=== PATIENT | female | born 1955 | race Caucasian/White ===

== ENCOUNTER → 2016-07-25 | Outpatient (CLI) | payer OTHER ==
[~2016-07-25] MED LIST: ALPR-475 PO; CALC-451 PO; CHOL40002 PO; CYAN1TAB29 PO; HYDR-3240 PO; OMEG-156 PO-COUM; POTASSIUM PO
[2016-07-25 09:52] LABS: BLOOD UREA NITROGEN 9 mg/dL (7-18)
[2016-07-25 09:55] LABS: ASPARTATE AMINO TRANSFERASE 18 U/L (15-37)
[2016-07-25 10:31] LABS: HIV 1&2 ANTIBODY SCREEN Nonreactive (Nonreactive); HIV-1 p24 ANTIGEN Nonreactive (Nonreactive)
== END | disposition home or self-care (01) ==
LOC: STAR 08:29
PROVIDERS: ATTEND Orthopaedic Surgery
DX: Z01.818 Encounter for other preprocedural examination (principal); M16.12 Unilateral primary osteoarthritis, left hip; R79.1 Abnormal coagulation profile
CPT/HCPCS: 36415; 80053; 81001; 83036; 85025; 85610; 85730; 86703; 87081; 87899; 93005; G0435

== ENCOUNTER 2016-08-05 08:32 | Inpatient (IN) | payer OTHER ==
[~2016-08-05] VITALS: Ht 160 cm; Wt 56.2 kg
[2016-08-05] MEDS ORDERED: KETOROLAC 60 MG/2 ML ONE (11:14)
[2016-08-05] MEDS ORDERED: TRANEXAMIC ACID 100 MG/ML, 10ML ONE ×4 (11:14)
[2016-08-05] MEDS ORDERED: SODIUM CHLORIDE 0.9% 50 ML ONE (11:14)
[2016-08-05] MEDS ORDERED: ROPIvacaine/PF 0.2%, 20 ML ONE (11:14)
[2016-08-05] MEDS ORDERED: EPINEPHRINE 1 MG/ML, 1ML ONE (11:14)
[2016-08-05 11:24] VITALS: BP 161/91
[2016-08-05] MEDS ORDERED: VANCOMYCIN PER PHARMACY MC STA (11:31)
[2016-08-05] MEDS ORDERED: LACTATED RINGERS 1,000 ML IV SCH (11:51)
[2016-08-05] MEDS ORDERED: VANCOMYCIN 1,100 MG in SODIUM CHLORIDE 0.9% 250 ML IV ONE (12:00)
[2016-08-05] MEDS ORDERED: OxyconTIN ER 10 MG TAB.ER ONE (12:05)
[2016-08-05] MEDS ORDERED: OxyconTIN ER 10 MG TAB.ER PO ONE (12:30)
[2016-08-05] MEDS ORDERED: FENTANYL PF 250 MCG/5ML ONE (13:07)
[2016-08-05] MEDS ORDERED: MIDAZOLAM 1 MG/ML, 2ML ONE (13:07)
[2016-08-05] MEDS ORDERED: LABETALOL 5MG/ML, 20ML IV PRN (14:30)
[2016-08-05] MEDS ORDERED: HYDROmorphone 1 MG/ML, 1ML IV PRN ×2 (14:30→15:00)
[2016-08-05] MEDS ORDERED: OXYcodone 5 MG/5 ML ORAL.SOL UDC PO PRN (14:30)
[2016-08-05] MEDS ORDERED: PROMETHAZINE 25 MG/ML, 1ML IV PRN (14:30)
[2016-08-05] MEDS ORDERED: ONDANSETRON 2MG/ML, 2ML IVPush PRN (14:30)
[2016-08-05] MEDS ORDERED: MEPERIDINE/PF 25MG/0.5ML IVPush PRN (14:30)
[2016-08-05] MEDS ORDERED: FENTANYL PF 100 MCG/2ML IV PRN (14:30)
[2016-08-05] MEDS ORDERED: ACETAMINOPHEN 325 MG TABLET PO PRN (14:30)
[2016-08-05] MEDS ORDERED: hydrALAzine 20 MG/ML, 1ML IV PRN (14:30)
[2016-08-05] MEDS ORDERED: ONDANSETRON 4 MG TABLET PO PRN (15:00)
[2016-08-05] MEDS ORDERED: BISACODYL 10 MG SUPP PR PRN (15:00)
[2016-08-05] MEDS ORDERED: PROMETHAZINE 12.5 MG SUPP PR PRN (15:00)
[2016-08-05] MEDS ORDERED: DIPHENHYDRAMINE 50 MG CAPSULE PO PRN (15:00)
[2016-08-05] MEDS ORDERED: PROMETHAZINE 25 MG/ML, 1ML IM PRN (15:00)
[2016-08-05] MEDS ORDERED: SENNA/DOCUSATE TABLET PO PRN (15:00)
[2016-08-05] MEDS ORDERED: ZOLPIDEM 5MG TABLET PO PRN (15:00)
[2016-08-05] MEDS ORDERED: OXYcodone IR 5MG TABLET PO PRN (15:00)
[2016-08-05] MEDS ORDERED: ACETAMINOPHEN 650 MG/20.3 ML UDC PO PRN (15:00)
[2016-08-05] MEDS ORDERED: ONDANSETRON 2MG/ML, 2ML IV PRN (15:00)
[2016-08-05] MEDS ORDERED: MAGNESIUM HYDROXIDE 8%, 30ML UDC PO PRN (15:00)
[2016-08-05] MEDS ORDERED: SCOPOLAMINE PATCH, 1.5MG PATCH.TD72 TD SCH (15:00)
[2016-08-05] MEDS ORDERED: ALUMINUM/MAG/SIMETHICONE 30 ML UDC PO PRN (15:00)
[2016-08-05] MEDS ORDERED: DIAZEPAM 5 MG TABLET PO PRN (15:00)
[2016-08-05] MEDS ORDERED: PROPOFOL 10 MG/ML, 20ML ONE (15:11)
[2016-08-05] MEDS ORDERED: ONDANSETRON 2MG/ML, 2ML ONE (15:11)
[2016-08-05] MEDS ORDERED: PHENYLEPHRINE 10 MG/ML ONE (15:11)
[2016-08-05] MEDS ORDERED: DEXAMETHASONE 4 MG/ML, 1ML ONE (15:11)
[2016-08-05] MEDS ORDERED: PROPOFOL 10 MG/ML, 50ML ONE (15:11)
[2016-08-05] MEDS ORDERED: CEFAZOLIN 1,000 MG ONE (15:11)
[2016-08-05] MEDS ORDERED: OXYcodone 5 MG/5 ML ORAL.SOL UDC ONE (18:05)
[2016-08-05] MEDS: D5%-0.45% NACL 1,000 ML IV SCH (20:24)
[2016-08-05] MEDS: HYDROcodone/APAP 10/325 MG TABLET PO SCH ×2 (20:24→20:29)
[2016-08-05] MEDS: PREGABALIN 75 MG CAPSULE PO SCH (20:24)
[2016-08-05] MEDS: TAMSULOSIN 0.4 MG CAP.ER.24H PO SCH (20:24)
[2016-08-05] MEDS: DOCUSATE 100 MG CAPSULE PO SCH (20:25)
[2016-08-05] MEDS: ASPIRIN 325 MG TABLET EC PO SCH (20:25)
[2016-08-06 00:16] VITALS: BP 102/61
[2016-08-06] MEDS: D5%-0.45% NACL 1,000 ML IV SCH ×2 (01:09→05:07)
[2016-08-06] MEDS: CEFAZOLIN PMX 1GM/50ML 50 ML IVPB SCH ×2 (01:09→08:59)
[2016-08-06] MEDS: HYDROcodone/APAP 10/325 MG TABLET PO SCH ×3 (01:09→08:55)
[2016-08-06] MEDS: [UNRECOGNIZED DRUG - OTHER] MC SCH ×2 (03:14→09:03)
[2016-08-06] MEDS: FOLIC ACID MC SCH ×2 (03:14→09:03)
[2016-08-06 04:25] VITALS: BP 114/70
[2016-08-06] MEDS: ASPIRIN 325 MG TABLET EC PO SCH (05:07)
[2016-08-06] MEDS ORDERED: DEXAMETHASONE 4 MG/ML, 1ML IVPush SCH (06:00)
[2016-08-06 06:24] LABS: HEMOGLOBIN 10.2 g/dL (11.7-16.4)
[2016-08-06 07:10] VITALS: BP 106/60
[2016-08-06] MEDS: DOCUSATE 100 MG CAPSULE PO SCH (08:59)
[2016-08-06] MEDS: PREGABALIN 75 MG CAPSULE PO SCH (08:59)
[2016-08-06] MEDS: TAMSULOSIN 0.4 MG CAP.ER.24H PO SCH (09:00)
[2016-08-06] MEDS ORDERED: MULTIVITAMINS/MINERALS TABLET PO SCH (09:00)
[2016-08-06] MEDS ORDERED: OXYC-302 PO (09:42)
[2016-08-06] MEDS ORDERED: ASPI-650 PO (09:43)
[2016-08-06] MEDS ORDERED: TRAM-28 PO (09:43)
[2016-08-06] MEDS ORDERED: DOCU-30 PO (09:43)
[2016-08-06] MEDS ORDERED: DIAZ5TAB PO (09:44)
[2016-08-06] MEDS ORDERED: VANCOMYCIN PMX 1GM/200ML 200 ML IVPB ONE (13:00)
[2016-08-06] MEDS ORDERED: KETOROLAC 30 MG/1 ML IV SCH (15:00)
[2016-08-06] MEDS ORDERED: HYDROcodone/APAP 10/325 MG TABLET PO PRN (17:00)
== END 2016-08-06 10:55 | disposition home or self-care (01) | DRG 470 ==
LOC: ORIP 10:38 → 4NOR 18:46 → DCLOUNGE 08-06 10:37
PROVIDERS: ADMIT Orthopaedic Surgery; ATTEND Orthopaedic Surgery
PROC: 0SRB02A Replacement of Left Hip Joint with Metal on Polyethylene Synthetic Substitute, Uncemented, Open Approach (ICD-10-PCS; principal; 2016-08-05 14:45)
DX: M16.12 Unilateral primary osteoarthritis, left hip (principal)
CPT/HCPCS: 36415; 72170; 85014; 85018; 86850; 86900; C1713; J0171; J0690; J1100; J1885; J2250; J2405; J2704; J2795; J3010; J3370; C1776; J2370; J7050; J7120